=== PATIENT | female | born 1975 | race Two or more races ===

== ENCOUNTER → 2017-11-21 | Outpatient (CLI) | payer OTHER | END | disposition home or self-care (01) | LOC: PPH VACUNA 16:16 | DX: Z23 Encounter for immunization (principal) ==

== ENCOUNTER 2021-07-05 07:40 | Outpatient (CLI) | payer OTHER | END 2021-07-05 08:01 | disposition home or self-care (01) | LOC: SONOGRAMA 07:40 | PROVIDERS: ATTEND Pathology Anatomic Pathology & Clinical Pathology | DX: E04.1 Nontoxic single thyroid nodule (principal) ==

== ENCOUNTER 2023-06-02 08:44 | Outpatient (CLI) | payer OTHER | END 2023-06-02 08:49 | disposition home or self-care (01) | LOC: SONOGRAMA 08:44 | PROVIDERS: ATTEND Pathology Anatomic Pathology & Clinical Pathology | DX: D34 Benign neoplasm of thyroid gland (principal); D44.0 Neoplasm of uncertain behavior of thyroid gland; E04.1 Nontoxic single thyroid nodule; E07.9 Disorder of thyroid, unspecified; E06.5 Other chronic thyroiditis ==

== ENCOUNTER 2023-06-04 17:57 | Emergency (ER) | payer OTHER ==
[~2023-06-04] VITALS: Ht 172.7 cm; Wt 113.4 kg
== END 2023-06-04 20:32 | disposition home or self-care (01) ==
LOC: ER 17:57
DX: S61.217A Laceration without foreign body of left little finger without damage to nail, initial encounter (principal); W26.8XXA Contact with other sharp object(s), not elsewhere classified, initial encounter; Y93.9 Activity, unspecified; Y92.9 Unspecified place or not applicable; Y99.9 Unspecified external cause status

== ENCOUNTER 2024-08-19 07:53 | Outpatient (CLI) | payer OTHER | END 2024-08-19 08:07 | disposition home or self-care (01) | LOC: MAMO-SONO 07:53 | PROVIDERS: ATTEND Family Medicine | DX: N60.11 Diffuse cystic mastopathy of right breast (principal); N60.12 Diffuse cystic mastopathy of left breast ==

== ENCOUNTER 2024-08-20 09:28 | Outpatient (CLI) | payer OTHER | END 2024-08-20 09:34 | disposition home or self-care (01) | LOC: SONOGRAMA 09:28 | PROVIDERS: ATTEND Family Medicine | DX: N93.9 Abnormal uterine and vaginal bleeding, unspecified (principal) ==

== ENCOUNTER 2024-08-29 21:27 | Emergency (ER) | payer OTHER ==
[~2024-08-29] VITALS: Ht 177.8 cm; Wt 104.3 kg
[2024-08-29] MEDS ORDERED: SYNTHROID175 MCG (21:47)
[2024-08-29] MEDS ORDERED: TRAMADOL HCL 50 MG TABLET PO ONE (22:15)
== END 2024-08-29 23:35 | disposition home or self-care (01) ==
LOC: ER 21:29
DX: S50.01XA Contusion of right elbow, initial encounter (principal); W10.8XXA Fall (on) (from) other stairs and steps, initial encounter; Y93.89 Activity, other specified; Y92.018 Other place in single-family (private) house as the place of occurrence of the external cause; Y99.9 Unspecified external cause status; Z88.8 Allergy status to other drugs, medicaments and biological substances; Z88.6 Allergy status to analgesic agent; Z91.010 Allergy to peanuts

== ENCOUNTER 2024-11-17 07:31 | Outpatient (CLI) | payer OTHER ==
[~2024-11-17 07:31] MED LIST: SYNTHROID175 MCG
== END 2024-11-17 07:40 | disposition home or self-care (01) ==
LOC: RAD 07:31
PROVIDERS: ATTEND Obstetrics & Gynecology Gynecology
DX: R05.9 Cough, unspecified (principal)

== ENCOUNTER 2025-05-02 06:28 | Emergency (ER) | payer OTHER ==
[~2025-05-02] VITALS: Ht 172.7 cm; Wt 114.3 kg
[2025-05-02] MEDS ORDERED: ROSUVASTATIN CA20 MG PO (06:33)
[2025-05-02] MEDS ORDERED: CIPROFLOXACIN IN 5 % DEXTROSE 400 MG/200 ML PIGGYBAG IV ONE (08:30)
[2025-05-02 09:00] LABS: BASO % 0.3 % (0.1-1.2); EOS # 0.37 (0.04-0.54); EOS % 2.7 % (0.7-7.0); LYMPH # 2.04 (1.18-3.74); LYMPH % 14.9 % (19.3-53.1); MEAN PLATELET VOLUME 9.20 fl (9.4-12.4); MONO # 1.28 (0.24-0.82); MONO % 9.4 % (4.7-12.5); NEUT # 9.90 (1.56-6.13); NEUT % 72.3 % (34.0-71.1); RED CELL DISTRIBUTION WIDTH 15.0 % (11.6-14.4)
[2025-05-02 09:25] LABS: BUN CREA RATIO 13.0 (7.0-25.0); CREATININE SERUM 0.62 mg/dL (0.55-1.02); GFR 102.31; GLUCOSE FASTING 104.0 mg/dL (65-100); OSMOLALITY SERUM 282.0 MOSM/KG (275-295)
== END 2025-05-02 12:08 | disposition home or self-care (01) ==
LOC: ER 06:32
PROVIDERS: Emergency Medicine
DX: K61.0 Anal abscess (principal); K62.89 Other specified diseases of anus and rectum; Z88.0 Allergy status to penicillin; Z88.6 Allergy status to analgesic agent; Z88.8 Allergy status to other drugs, medicaments and biological substances